=== PATIENT | female | born 1970 | race Caucasian/White ===

== ENCOUNTER 2017-11-28 19:00 | Emergency (ER) | payer MEDICAID ==
[~2017-11-28] VITALS: Ht 157.5 cm; Wt 85.7 kg
[2017-11-28 19:21] VITALS: BP_SYST 134
--- NOTE | 2017-11-28 19:31 | NUR ---
Patient to ER bed 04 to gown for evaluation. Side rails up.
--- NOTE | 2017-11-28 19:45 | NUR ---
Patient AOx4, ambulatory, presents to ER with complaint of rash and itchiness to bilateral breast line, arms, torso, and head. Patient states she underwent chemotherapy on Nov 18 and the rash appeared the following day. Patient states she was given Valacyclovir 1gm for Shingles by her MD. Patient took 2 benadryl today but ineffective. No other symptoms or complaints at this time.
--- NOTE | 2017-11-28 22:20 | NUR ---
JEANNETTE De La Cruz at bedside for medical evaluation.
--- NOTE | 2017-11-28 22:25 | NUR ---
# 22 gauge angiocath placed to left hand. Use of asceptic technique. Opsite placed over site. Blood return noted. Flushed with 10 cc of normal saline. No evidence of infiltration noted. Patient tolerated well.
[2017-11-28] MEDS ORDERED: methylPREDNISolone SOD SUCC/PF 62.5 MG/ML VIAL IVP ONE (22:30)
[2017-11-28] MEDS ORDERED: DIPHENHYDRAMINE INJ 50 MG/ML VIAL IVP ONE (22:30)
--- NOTE | 2017-11-28 22:55 | NUR ---
No adverse reactions noted after medication administration. Will continue to monitor.
[2017-11-28 22:56] VITALS: BP_SYST 142
--- NOTE | 2017-11-28 22:56 | NUR ---
Patient given written and verbal discharge instructions and verbalizes understanding. ER MD discussed with patient the results and treatment provided. Patient in stable condition. ID arm band removed. IV catheter removed intact and dressing applied, no active bleeding. Rx of Medrol Dosepak given. Patient educated on pain management and to follow up with PMD. Pain Scale 0/10. Opportunity for questions provided and answered.
== END 2017-11-28 22:56 | disposition home or self-care (01) ==
LOC: SED 19:00
DX: L25.8 Unspecified contact dermatitis due to other agents (principal); T50.905A Adverse effect of unspecified drugs, medicaments and biological substances, initial encounter; I10 Essential (primary) hypertension; Z85.3 Personal history of malignant neoplasm of breast; Y92.89 Other specified places as the place of occurrence of the external cause
CPT/HCPCS: 96374; 96375; 99284; J1200; J2930

== ENCOUNTER 2018-12-02 18:42 | Emergency (ER) | payer MEDICAID ==
[~2018-12-02] VITALS: Ht 157.5 cm; Wt 95.3 kg
[2018-12-02 18:54] VITALS: BP_SYST 162
--- NOTE | 2018-12-02 19:07 | NUR ---
Patient to ER bed 8 to gown for evaluation. Side rails up.
--- NOTE | 2018-12-02 19:30 | NUR ---
Pt AAOX4 came in with a complaint of left arm weakness and pain for 5 weeks. No other complaint noted. Left leg swelling noted. Has history of Breast CA. No medications have been taking at home. Safety precaution observed, will continue to monitor Pt.
--- NOTE | 2018-12-02 19:35 | NUR ---
JEANNETTE Romero at bedside for medical evaluation.
[2018-12-02] MEDS ORDERED: ACETAMINOPHEN 325 MG TABLET PO ONE (19:45)
[2018-12-02 19:59] LABS: BASOPHILS # (AUTO) 0.1 K/uL (0.0-0.2); BASOPHILS % (AUTO) 1.1 % (0.0-2.0); EOSINOPHILS # (AUTO) 0.1 K/uL (0.0-0.4); EOSINOPHILS % (AUTO) 1.3 % (0.0-4.0); HEMATOCRIT 39.3 % (36-48); HEMOGLOBIN 12.9 g/dL (12.0-16.0); LYMPHOCYTES # (AUTO) 1.6 K/uL (1.0-5.5); LYMPHOCYTES % (AUTO) 21.3 % (20.5-51.5); MEAN CORPUSCULAR HEMOGLOBIN 30 pg (27-31); MEAN CORPUSCULAR HGB CONC 33 % (32-36); MEAN CORPUSCULAR VOLUME 90 fL (79.0-98.0); MONOCYTES # (AUTO) 0.6 K/uL (0.0-1.0); MONOCYTES % (AUTO) 8.4 % (1.7-9.3); NEUTROPHILS # (AUTO) 4.9 K/uL (1.8-7.7); NEUTROPHILS % (AUTO) 67.9 % (40.0-70.0); PLATELET COUNT (AUTO) 229 K/uL (130-430); RED BLOOD CELL COUNT(AUTO) 4.36 MIL/uL (4.2-6.2); WHITE BLOOD COUNT (AUTO) 7.3 K/uL (4.8-10.8)
[2018-12-02 20:03] LABS: CALCIUM 9.4 mg/dL (8.4-11.0); CREATININE 0.74 mg/dL (0.55-1.30); INR 0.9 (0.8-1.2); POTASSIUM 4.2 mmol/L (3.5-5.1); PROTHROMBIN TIME 8.9 SECS (9.5-12.5)
[2018-12-02 20:07] LABS: ALBUMIN 3.7 g/dL (3.4-4.8); TOTAL BILIRUBIN 0.2 mg/dL (0.0-1.0)
--- NOTE | 2018-12-02 20:09 | NUR ---
Pt to radiology
[2018-12-02 20:14] LABS: BILIRUBIN,URINE NEGATIVE (NEGATIVE); BLOOD, URINE NEGATIVE (NEGATIVE); CLARITY/URINE CLEAR (CLEAR); COLOR,URINE YELLOW (YELLOW); GLUCOSE,URINE NEGATIVE (NEGATIVE); KETONES,URINE NEGATIVE (NEGATIVE); LEUKOCYTE ESTERASE ,URINE NEGATIVE (NEGATIVE); NITRITE, URINE NEGATIVE (NEGATIVE); PROTEIN URINE NEGATIVE (NEGATIVE); UROBILINOGEN,URINE 0.2 (0.2-1.0)
--- NOTE | 2018-12-02 20:20 | NUR ---
Pt came back from radiology
[2018-12-02 20:59] LABS: INR 0.9 (0.8-1.2); PROTHROMBIN TIME 8.9 SECS (9.5-12.5)
[2018-12-02 21:09] VITALS: BP_SYST 125
--- NOTE | 2018-12-02 21:09 | NUR ---
Patient given written and verbal discharge instructions and verbalizes understanding. ER LEONEL SANCHEZ discussed with patient the results and treatment provided. Patient in stable condition. ID arm band removed. IV catheter removed intact and dressing applied, no active bleeding. Rx of ibuprophen given. Patient educated on pain management and to follow up with PMD. Pain Scale 0/10. Opportunity for questions provided and answered. Medication side effect fact sheet provided.
== END 2018-12-02 21:09 | disposition home or self-care (01) ==
LOC: SED 18:42
DX: M79.602 Pain in left arm (principal); R05 Cough; I10 Essential (primary) hypertension; Z85.3 Personal history of malignant neoplasm of breast
CPT/HCPCS: 36415; 71250-TC; 80053; 81003; 83605; 83880; 85025; 85379; 85610-TC; 85730-TC; 87040-TC; 93971; 99284

== ENCOUNTER 2022-07-12 09:16 | Emergency (ER) | payer MEDICAID ==
[~2022-07-12] VITALS: Ht 160 cm; Wt 99.8 kg
[2022-07-12 10:08] VITALS: BP_SYST 143
--- NOTE | 2022-07-12 10:10 | NUR ---
Patient triaged and placed in waiting room. VSS and patient appears in no acute distress at this time. Accompanied by SELF, awaiting available bed, and MD notified of need for MSE.
--- NOTE | 2022-07-12 13:25 | NUR ---
Patient left without being seen.
== END 2022-07-12 13:25 | disposition left against medical advice (07) ==
LOC: SED 09:16
DX: K08.89 Other specified disorders of teeth and supporting structures (principal); Z53.21 Procedure and treatment not carried out due to patient leaving prior to being seen by health care provider

== ENCOUNTER 2024-04-21 17:28 | Emergency (ER) | payer MEDICAID ==
[~2024-04-21] VITALS: Ht 157.5 cm; Wt 102.1 kg
[2024-04-21 17:50] VITALS: BP_SYST 139; PULSE 73; RESP 17; TEMP 98.3; O2SAT 96
[2024-04-21] MEDS: KETOROLAC TROMETHAMINE 30 MG VIAL IM ONE (18:25)
[2024-04-21] MEDS ORDERED: HYDR-3917 PO (19:00)
[2024-04-21] MEDS ORDERED: ZAN4 PO (19:00)
[2024-04-21 19:06] VITALS: BP_SYST 139; PULSE 73; RESP 17; TEMP 98.3; O2SAT 96
== END 2024-04-21 19:05 | disposition home or self-care (01) ==
LOC: SED 17:28
DX: M54.16 Radiculopathy, lumbar region (principal); I10 Essential (primary) hypertension; Z88.5 Allergy status to narcotic agent; Z85.3 Personal history of malignant neoplasm of breast
CPT/HCPCS: 99285; 72131; 96372; J1885